=== PATIENT | female | born 1985 | race Two or more races ===

== ENCOUNTER 2023-02-25 12:01 | Outpatient (CLI) | payer OTHER | END 2023-02-25 13:49 | disposition home or self-care (01) | LOC: NST 12:01 | PROVIDERS: ATTEND Obstetrics & Gynecology | DX: Z34.83 Encounter for supervision of other normal pregnancy, third trimester (principal) ==

== ENCOUNTER 2023-03-04 13:45 | Inpatient (IN) | payer OTHER ==
[~2023-03-04] VITALS: Ht 152.4 cm; Wt 84.8 kg
[2023-03-05] MEDS ORDERED: PRENATAL + DHA1 EAC1 (08:23)
== END 2023-03-06 11:01 | disposition home or self-care (01) | DRG 833 ==
LOC: LDR 13:45 → OB/GYN 03-05 09:39
PROVIDERS: ADMIT Obstetrics & Gynecology; ATTEND Obstetrics & Gynecology
PROC: 4A1HXCZ Monitoring of Products of Conception, Cardiac Rate, External Approach (ICD-10-PCS; principal; 2023-03-04)
DX: O47.03 False labor before 37 completed weeks of gestation, third trimester (principal); Z3A.34 34 weeks gestation of pregnancy; Z20.822 Contact with and (suspected) exposure to COVID-19

== ENCOUNTER 2023-03-14 14:44 | Outpatient (CLI) | payer OTHER ==
[~2023-03-14 14:44] MED LIST: PRENATAL + DHA1 EAC1
== END 2023-03-14 16:57 | disposition home or self-care (01) ==
LOC: NST 14:44
PROVIDERS: ATTEND Obstetrics & Gynecology Gynecology
DX: Z34.83 Encounter for supervision of other normal pregnancy, third trimester (principal)

== ENCOUNTER 2023-03-21 12:30 | Inpatient (IN) | payer OTHER ==
[~2023-03-21] VITALS: Ht 152.4 cm; Wt 87.1 kg
[~2023-03-21 12:30] MED LIST changes: -PRENATAL + DHA1 EAC1; +PRENATAL + DHA1 EAC1 PO
[2023-04-10 07:54] LABS: HEMATOCRIT 36.3 % (36.0-45.00); HEMOGLOBIN 12.4 g/dL (12.0-15.00); MEAN CELL VOLUME 92.7 fL (80.00-100.00); MEAN CORPUSCULAR HEMOGLOBIN 31.6 pg (27.00-32.0); MEAN CORPUSCULAR HGB CONC 34.1 g/dl (32.0-36.0); PLATELET COUNT 273 K/uL (150-450); RED BLOOD COUNT 3.92 M/uL (4.00-6.00); RED CELL DISTRIBUTION WIDTH 13.9 % (11.5-14.5)
[2023-04-10 08:25] LABS: ALBUMIN 2.5 gm/dL (3.4-5.0); BILIRUBIN TOTAL 0.37 mg/dL (0.3-1.2); CALCIUM 8.6 mg/dL (8.5-10.1); CREATININE SERUM 0.54 mg/dL (0.55-1.02); GFR 128.47; GLOBULINA 3.4 G/DL (2.4-3.5); INR 0.98; PARTIAL THROMBOPLASTIN TIME 29.3 SECONDS (22.0-34.0); POTASSIUM 4.16 mEq/L (3.5-5.1); PROTHROMBIN TIME 10.3 SECONDS (9.0-11.5); TOTAL PROTEIN 5.9 gm/dL (6.4-8.2)
[2023-04-10 15:22] LABS: ABG PH 7.347 (7.35-7.45)
[2023-04-10 15:23] LABS: ABG pCO2 41.1 mmHg (35-45); BASE EXCESS -3.4 mmol/l; SaO2 49.3 %
[2023-04-10 15:24] LABS: ABG PO2 28.7 mmHg (80-100)
[2023-04-11 22:12] LABS: HEMATOCRIT 35.9 % (36.0-45.00); HEMOGLOBIN 11.5 g/dL (12.0-15.00); MEAN CELL VOLUME 95.1 fL (80.00-100.00); MEAN CORPUSCULAR HEMOGLOBIN 30.5 pg (27.00-32.0); MEAN CORPUSCULAR HGB CONC 32.1 g/dl (32.0-36.0); PLATELET COUNT 269 K/uL (150-450); RED BLOOD COUNT 3.78 M/uL (4.00-6.00)
== END 2023-04-12 14:54 | disposition home or self-care (01) | DRG 798 ==
LOC: OB/GYN 04-10 07:15 → LDR 04-10 07:15 → OB/GYN 04-10 14:39
PROVIDERS: Obstetrics & Gynecology Maternal & Fetal Medicine; ADMIT Obstetrics & Gynecology Gynecology; ATTEND Obstetrics & Gynecology Gynecology
PROC: 10E0XZZ Delivery of Products of Conception, External Approach (ICD-10-PCS; principal; 2023-04-10)
PROC: 4A1HXCZ Monitoring of Products of Conception, Cardiac Rate, External Approach (ICD-10-PCS; 2023-04-10)
PROC: 0UB70ZZ Excision of Bilateral Fallopian Tubes, Open Approach (ICD-10-PCS; 2023-04-11)
DX: O80 Encounter for full-term uncomplicated delivery (principal); Z37.0 Single live birth; Z30.2 Encounter for sterilization; Z20.822 Contact with and (suspected) exposure to COVID-19; Z3A.39 39 weeks gestation of pregnancy

== ENCOUNTER 2023-04-03 17:31 | Outpatient (CLI) | payer OTHER | END 2023-04-03 17:59 | disposition home or self-care (01) | LOC: NST 17:31 | PROVIDERS: ATTEND Obstetrics & Gynecology | DX: Z34.83 Encounter for supervision of other normal pregnancy, third trimester (principal) ==